=== PATIENT | female | born 1960 | race Caucasian/White ===

== ENCOUNTER 2018-08-09 19:33 | Emergency (ER) | payer OTHER ==
[~2018-08-09] VITALS: Ht 157.5 cm; Wt 69.1 kg
[2018-08-09 19:46] VITALS: Ht 157.5 cm; Wt 69.1 kg
[2018-08-09] MEDS ORDERED: CEFEPIME 2GM/50 ML (PMX) 50 ML IVPB STA (20:05)
[2018-08-09] MEDS ORDERED: SODIUM CHLORIDE 0.9% 1L BAG IV* STA (20:05)
[2018-08-09] MEDS ORDERED: PIPER-TAZO 3.375 GM IV (PMX) 100 ML IVPB ONE (20:30)
--- NOTE | 2018-08-09 22:14 | ERD ---
ER Documentation Chief Complaint Chief Complaint AP X 2 DAYS ACCOMPANIED BY PAINFUL URINATION HPI 57-year-old female with a history of nephrolithiasis status post stone removal and stent placement yesterday by , presenting with painful urination and left-sided abdominal pain radiating to her left flank. Patient reportedly accidentally pulled on the string of her stent which came out. Her urologist actually came to the ER to explain to me that he is worried about swelling in the ureter and possible hydronephrosis. She denies any nausea or vomiting. Her pain is aching, constant, with no alleviating or exacerbating factors. ROS All systems reviewed and are negative except as per history of present illness. Medications Home Meds Reported Medications [place]-3 Fatty Acids/Fish Oil (Fish Oil 1,000 mg Capsule) 1 Each Capsule, 1 EACH PO DAILY, CAP 08/09/18 Olmesartan Medoxomil (Benicar) Unknown Strength Tablet, PO DAILY, #30 TAB 08/09/18 Oxycodone HCl/Acetaminophen (Percocet 5-325 mg Tablet) 1 Each Tablet, 1 EACH PO, TAB 08/09/18 Phenazopyridine Hcl* (Pyridium*) 100 Mg Tab, 100 MG PO BID, TAB 08/09/18 Allergies Allergies: Coded Allergies: No Known Allergy (Unverified , 08/09/18) PMhx/Soc History of Surgery: Yes (KINDEY STENT 08/08/[address] CORREA) Anesthesia Reaction: No Hx Neurological Disorder: No Hx Respiratory Disorders: No Hx Cardiac Disorders: Yes (HTN) Hx Psychiatric Problems: No Hx Miscellaneous Medical Probl: Yes (Kidney stones, prediabetic) Hx Alcohol Use: No Hx Substance Use: No Hx Tobacco Use: No Smoking Status: Never smoker FmHx Family History: No coronary disease Physical Exam Vitals Vital Signs Date Temp Pulse Resp B/P (MAP) Pulse Ox O2 O2 Flow FiO2 Time Delivery Rate 08/09/18 97.6 93 23 91/64 (73) 97 Nasal 23:24 Cannula 08/09/18 94 21 100/63 100 Nasal 3.0 21:16 (75) Cannula 08/09/18 95 23 99/65 (76) 97 Nasal 3.0 20:25 Cannula 08/09/18 100.5 99 27 92/53 (66) 94 19:46 Physical Exam Const: Appears to be in discomfort due to pain. Nontoxic Head: Atraumatic Eyes: Normal Conjunctiva ENT: Normal External Ears, Nose and Mouth. Neck: Full range of motion. No meningismus. Resp: Clear to auscultation bilaterally Cardio: Regular rate and rhythm, no murmurs Abd: Soft, mild left lower quadrant tenderness to palpation without rebound or guarding, non distended. Normal bowel sounds Skin: No petechiae or rashes Back: mild left CVA tenderness. Ext: No cyanosis, or edema Neur: Awake and alert Psych: Normal Mood and Affect Result Diagram: 08/09/18199908/09/181999 Results 24 hrs Laboratory Tests Test 08/09/18 20:00 08/09/18 22:04 White Blood Count 17.8 10^3/ul Red Blood Count 3.80 10^6/ul Hemoglobin 10.7 g/dl Hematocrit 32.8 % Mean Corpuscular Volume 86.3 fl Mean Corpuscular Hemoglobin 28.2 pg Mean Corpuscular Hemoglobin Concent 32.6 g/dl Red Cell Distribution Width 14.2 % Platelet Count 183 10^3/UL Mean Platelet Volume 9.1 fl Immature Granulocytes % 1.300 % Neutrophils % 77.2 % Lymphocytes % 9.0 % Monocytes % 11.1 % Eosinophils % 1.0 % Basophils % 0.4 % Nucleated Red Blood Cells % 0.0 /100WBC Immature Granulocytes # 0.240 10^3/ul Neutrophils # 13.7 10^3/ul Lymphocytes # 1.6 10^3/ul Monocytes # 2.0 10^3/ul Eosinophils # 0.2 10^3/ul Basophils # 0.1 10^3/ul Nucleated Red Blood Cells # 0.0 10^3/ul Urine Color YELLOW Urine Clarity SLIGHTLY CLOUDY Urine pH 6.0 Urine Specific [place] 1.004 Urine Ketones NEGATIVE mg/dL Urine Nitrite NEGATIVE mg/dL Urine Bilirubin NEGATIVE mg/dL Urine Urobilinogen NEGATIVE mg/dL Urine Leukocyte Esterase 3+ Davy/ul Urine Microscopic RBC 15 /HPF Urine Microscopic WBC 89 /HPF Urine Squamous Epithelial Cells FEW /HPF Urine Bacteria FEW /HPF Urine Hemoglobin 3+ mg/dL Urine Glucose NEGATIVE mg/dL Urine Total Protein 2+ mg/dl Sodium Level 135 mmol/L Potassium Level 3.1 mmol/L Chloride Level 101 mmol/L Carbon Dioxide Level 25 mmol/L Anion Gap 9 Blood Urea Nitrogen 15 mg/dl Creatinine 0.92 mg/dl Est Glomerular Filtrat Rate mL/min > 60 mL/min Glucose Level 115 mg/dl Lactic Acid Level 1.0 mmol/L 1.2 mmol/L Calcium Level 8.8 mg/dl Current Medications Medications Dose Sig/K[place]on Start Time Status Last (Trade) Ordered Route PRN Stop Time Admin Dose Reason Admin Sodium 2,070 ml BOLUS OVER 2 08/09/18 DC 08/09/18 Chloride HOURS STAT 20:05 20:14 (NS) IV* 08/09/18 20:06 Cefepime HCl 50 ml @ ONCE STAT 08/09/18 DC 100 mls/hr IVPB 20:05 08/09/18 20:08 Piperacillin 100 ml @ ONCE ONCE 08/09/18 DC 08/09/18 Sod/ 200 mls/hr IVPB 20:30 20:12 Tazobactam 08/09/18 20:59 Sod Morphine 4 mg ONCE STAT 08/09/18 DC 08/09/18 Sulfate IV 23:29 23:35 (morphine) 08/09/18 23:30 Procedures/MDM EMERGENT LABS AND DIAGNOSTIC STUDIES: Lab Results above were reviewed and interpreted by me. CBC: Leukocytosis, mild anemia BMP: Hypokalemia. no evidence of electrolyte abnormality, renal failure, hypoglycemia Lactate within normal limits without evidence of sepsis or tissue hypoperfusion UA: Findings of infection noted Radiology Results as interpreted by Radiology below were reviewed by Garrett cuevas MD: XR KUB: IMPRESSION: 1. No ureteral stent is visualized. 2. Question early staghorn calculi in the lower right kidney. 3. Gallstone. 4. Nonobstructive and nonspecific bowel gas pattern. Initial Nursing notes reviewed. Previous Medical Records requested via the Electronic Health Record. EMERGENCY DEPARTMENT COURSE / MEDICAL DECISION MAKING: Patient presented with dysuria and symptoms of possible UTI. Given her recent instrumentation yesterday, I am concerned about UTI and possible pyelonephritis with hydronephrosis. Vitals were concerning for sepsis. Sepsis workup was initiated. There is no evidence of severe sepsis or septic shock. However she did have leukocytosis and signs of a UTI. She was treated with broad-spectrum antibiotics and IV fluids. Given her insurance, patient will have to be transferred to [facility], for which she is stable for transfer. I spoke with her urologist, who came to see her and he agrees with plan. Departure Diagnosis: Primary Impression: Sepsis Sepsis type: sepsis due to unspecified organism Qualified Codes: A41.9 - Sepsis, unspecified organism Additional Impression: UTI (urinary tract infection) Urinary tract infection type: site unspecified Hematuria presence: with he maturia Qualified Codes: N39.0 - Urinary tract infection, site not specified; R31.9 - Hematuria, unspecified Condition: HEAVEN Grigsby MD Aug 09, 2018 22:14
[2018-08-09] MEDS ORDERED: morphine 4 MG/ML VIAL IV STA (23:29)
[2018-08-09] MEDS ORDERED: PHEN-537 PO (23:32)
[2018-08-09] MEDS ORDERED: OLME5TAB4 PO (23:32)
[2018-08-09] MEDS ORDERED: OMEG-135 PO (23:32)
[2018-08-09] MEDS ORDERED: OXYC-279 PO (23:32)
[2018-08-10 00:21] VITALS: BP 98/67; PULSE 95; RESP 22
== END 2018-08-10 00:25 | disposition short-term general hospital (02) ==
LOC: E/R 19:33
DX: A41.9 Sepsis, unspecified organism (principal); N39.0 Urinary tract infection, site not specified; I10 Essential (primary) hypertension
CPT/HCPCS: 36415; 74018; 80048; 81001; 83605; 85025; 87040; 87086; 96365; 96375; J2270; J2543; J7030; Z7502